=== PATIENT | male | born 1975 | race African-American/Black ===

== ENCOUNTER 2022-01-04 20:55 | Emergency (ER) | payer MEDICAID ==
[~2022-01-04] VITALS: Ht 190.5 cm; Wt 112.5 kg
[2022-01-04 21:21] VITALS: BP_SYST 146
--- NOTE | 2022-01-04 21:30 | NUR ---
46 YR OLD AOX4 AMBULATORY MALE WITH COMPLAINT OF SWELLING OF BILATERAL EXTREMITIES FOR MORE THAN ONE WEKK. PT DENIES CHEST PAIN, SOB, OR NAUSEA. PT IS A SMOKER, DENIES DRINKING ALCOHOL. PT DENIES ANY HEALTH HISTORY. PT PLACED IN BED 1 ON PARTS RUNNER.
--- NOTE | 2022-01-04 21:34 | NUR ---
Patient ambulatory to bed 1 for evaluation and treatment
--- NOTE | 2022-01-04 21:53 | NUR ---
Pt C/O bilateral lower extremity swelling x1 week No PMX VSS AOX4 Will continue to monitor
--- NOTE | 2022-01-04 21:53 | NUR ---
MIKEL Meyer at bedside examining patient.
[2022-01-04 22:19] LABS: BASOPHILS % (AUTO) 0.6 % (0.0-2.0); EOSINOPHILS # (AUTO) 0.1 K/uL (0.0-0.4); EOSINOPHILS % (AUTO) 2.6 % (0.0-4.0); HEMATOCRIT 37.3 % (36-54); HEMOGLOBIN 12.6 g/dL (14.0-18.0); LYMPHOCYTES % (AUTO) 39.9 % (20.5-51.5); MEAN CORPUSCULAR HEMOGLOBIN 28 pg (27-31); MEAN CORPUSCULAR HGB CONC 34 % (32-36); MEAN CORPUSCULAR VOLUME 82 fL (79.0-98.0); MONOCYTES # (AUTO) 0.4 K/uL (0.0-1.0); MONOCYTES % (AUTO) 8.1 % (1.7-9.3); NEUTROPHILS # (AUTO) 2.5 K/uL (1.8-7.7); NEUTROPHILS % (AUTO) 48.8 % (40.0-70.0); PLATELET COUNT (AUTO) 306 K/uL (130-430); RED BLOOD CELL COUNT(AUTO) 4.55 MIL/uL (4.2-6.2); RED CELL DISTRIBUTION WIDTH 14.1 % (9.0-15.0)
[2022-01-04] MEDS ORDERED: NICOTINE 14 MG/24 HR PATCH.TD24 TD ONE (22:30)
[2022-01-04] MEDS ORDERED: NICOTINE 21 MG/24 HR PATCH.TD24 TD ONE (22:45)
[2022-01-04 22:58] LABS: CALCIUM 8.3 mg/dL (8.4-11.0); CREATININE 1.19 mg/dL (0.55-1.30); POTASSIUM 3.8 mmol/L (3.5-5.1)
[2022-01-04 23:04] LABS: ALBUMIN 3.5 g/dL (3.4-4.8); TOTAL BILIRUBIN 0.2 mg/dL (0.0-1.0)
[2022-01-04] MEDS ORDERED: FURO-150 PO (23:23)
[2022-01-04] MEDS ORDERED: HYDR12.55 PO (23:24)
[2022-01-04] MEDS ORDERED: HYDROCHLOROTHIAZIDE 12.5 MG CAPSULE (HCTZ) PO ONE (23:30)
[2022-01-04] MEDS ORDERED: FUROSEMIDE 20 MG TABLET PO ONE (23:30)
[2022-01-04 23:33] VITALS: BP_SYST 162
--- NOTE | 2022-01-05 00:02 | NUR ---
pt DC per MD's order DC instructions and prescriptions given to pt AOX4 VSS Verbally responsive Able to make needs known Pt eexited ED in stable gait
== END 2022-01-05 00:02 | disposition home or self-care (01) ==
LOC: SED 20:55
DX: R60.0 Localized edema (principal); R03.0 Elevated blood-pressure reading, without diagnosis of hypertension; Z79.899 Other long term (current) drug therapy
CPT/HCPCS: 36415; 71045; 80053; 83880; 85025; 93005; 99285